=== PATIENT | female | born 1980 | race African-American/Black ===

== ENCOUNTER 2018-08-25 19:34 | Emergency (ER) | payer MEDICAID ==
[~2018-08-25] VITALS: Ht 170.2 cm; Wt 109.0 kg
[2018-08-25 19:56] VITALS: BP 160/101
== END 2018-08-25 23:10 | disposition left against medical advice (07) ==
LOC: ER 19:34
DX: Z53.21 Procedure and treatment not carried out due to patient leaving prior to being seen by health care provider (principal)

== ENCOUNTER 2019-02-13 19:46 | Inpatient (IN) | payer BC, MEDICAID ==
[~2019-02-13] VITALS: Ht 170.2 cm; Wt 104.3 kg
[2019-02-13] MEDS ORDERED: MORPHINE SULFATE 4 MG/ML CPJ (NOT FOR IM USE) IV STA (23:26)
[2019-02-13] MEDS ORDERED: SODIUM CHLORIDE 0.9% 1,000 ML IV ONE (23:26)
[2019-02-13] MEDS ORDERED: ONDANSETRON HCL 4MG/2ML INJ IV STA (23:26)
[2019-02-14 00:04] LABS: BASOPHILS % 0.7 % (0.0-2.0); EOSINOPHILS % 2.8 % (0.0-5.0); HEMATOCRIT. 30.5 % (36.0-48.0); HEMOGLOBIN. 9.8 g/dL (12.0-16.0); LYMPHOCYTES % 45.6 % (20.0-50.0); MEAN CORPUSCULAR HEMOGLOBIN 23.1 pg (28.0-32.0); MEAN CORPUSCULAR VOLUME 71.8 fL (81.0-99.0); MEAN PLATELET VOLUME 7.7 fl (7.4-10.4); MONOCYTES % 5.7 % (2.0-8.0); NEUTROPHILS % 45.2 % (40.0-76.0); PLATELET 363 x1000/uL (130-400); RED BLOOD CELL COUNT 4.24 mill/uL (4.2-5.4); RED CELL DISTRIBUTION WIDTH 17.8 % (11.6-14.6)
[2019-02-14 00:05] LABS: CHLORIDE 108 mEq/L (98-107)
[2019-02-14 00:06] LABS: PROTHROMBIN TIME 10.5 sec (9.6-11.0)
[2019-02-14 00:24] LABS: CLARITY URINE CLEAR (CLEAR); COLOR URINE YELLOW (YELLOW); KETONES URINE NEGATIVE (NEGATIVE); LEUKOCYTE ESTERASE URINE NEGATIVE (NEGATIVE); NITRITE URINE NEGATIVE (NEGATIVE); OCCULT BLOOD URINE NEGATIVE (NEGATIVE); PH URINE 6.5 (4.5-8.0); PROTEIN URINE NEGATIVE (NEGATIVE); UROBILINOGEN URINE 0.2 E.U./dL (0.2-1.0)
[2019-02-14] MEDS ORDERED: MORPHINE SULFATE 4 MG/ML CPJ (NOT FOR IM USE) IV ONE (01:30)
[2019-02-14] MEDS ORDERED: HYDROMORPHONE HCL/PF 2MG/ML CPJ IV ONE (04:00)
[2019-02-14] MEDS ORDERED: ONDANSETRON HCL 4MG/2ML INJ IV ONE (05:45)
[2019-02-14] MEDS ORDERED: MAGNESIUM/ALUMINUM HYDROXIDE/SIMETHICONE 30ML UDC PO PRN (07:15)
[2019-02-14] MEDS ORDERED: CLONIDINE 0.1MG TABLET PO PRN (07:15)
[2019-02-14] MEDS ORDERED: ACETAMINOPHEN 325MG TABLET PO PRN (07:15)
[2019-02-14] MEDS ORDERED: HYDROCODONE/ACETAMINOPHEN 5/325MG TABLET PO PRN (07:15)
[2019-02-14] MEDS: MORPHINE SULFATE 2 MG/ML CPJ (NOT FOR IM USE) IV PRN ×3 (08:52→21:55)
[2019-02-14] MEDS ORDERED: LEVO200T8 MT (10:08)
[2019-02-14] MEDS: AMLODIPINE 10MG TABLET PO SCH (10:30)
[2019-02-14 10:32] VITALS: BP 124/70
[2019-02-14] MEDS ORDERED: HYDROMORPHONE HCL/PF 2MG/ML CPJ IV SCH (10:45)
[2019-02-14 12:00] VITALS: BP 122/62
[2019-02-14] MEDS: DIPHENHYDRAMINE 50MG/ML VIAL IV PRN ×2 (13:29→21:54)
[2019-02-14] MEDS: DEXT 5%/0.45% NACL KCL 10MEQ/L 1,000 ML IV SCH (13:29)
[2019-02-14] MEDS: LEVOTHYROXINE SODIUM 200MCG TABLET PO SCH (14:37)
[2019-02-14 16:00] VITALS: BP 121/60
[2019-02-14] MEDS: ONDANSETRON HCL 4MG/2ML INJ IV PRN (17:49)
[2019-02-14 20:00] VITALS: BP 132/72
[2019-02-14] MEDS: OMEPRAZOLE 20MG CAPSULE EXTENDED RELEASE PO SCH (23:32)
[2019-02-15] VITALS: BP 136/66
[2019-02-15] MEDS: DEXT 5%/0.45% NACL KCL 10MEQ/L 1,000 ML IV SCH (02:38)
[2019-02-15] MEDS: ONDANSETRON HCL 4MG/2ML INJ IV PRN (02:38)
[2019-02-15] MEDS: MORPHINE SULFATE 2 MG/ML CPJ (NOT FOR IM USE) IV PRN ×3 (02:40→23:22)
[2019-02-15 04:00] VITALS: BP 122/70
[2019-02-15] MEDS: LEVOTHYROXINE SODIUM 200MCG TABLET PO SCH (07:10)
[2019-02-15] MEDS: OMEPRAZOLE 20MG CAPSULE EXTENDED RELEASE PO SCH ×2 (07:11→20:48)
[2019-02-15 07:27] LABS: BASOPHILS % 0.3 % (0.0-2.0); EOSINOPHILS % 3.3 % (0.0-5.0); HEMATOCRIT. 27.9 % (36.0-48.0); HEMOGLOBIN. 8.9 g/dL (12.0-16.0); LYMPHOCYTES % 25.1 % (20.0-50.0); MEAN CORPUSCULAR HEMOGLOBIN 23.2 pg (28.0-32.0); MEAN CORPUSCULAR VOLUME 72.4 fL (81.0-99.0); MEAN PLATELET VOLUME 8.2 fl (7.4-10.4); MONOCYTES % 6.1 % (2.0-8.0); NEUTROPHILS % 65.2 % (40.0-76.0); PLATELET 307 x1000/uL (130-400); RED BLOOD CELL COUNT 3.85 mill/uL (4.2-5.4); RED CELL DISTRIBUTION WIDTH 17.6 % (11.6-14.6)
[2019-02-15 08:00] VITALS: BP 132/63
[2019-02-15] MEDS: AMLODIPINE 10MG TABLET PO SCH ×2 (08:53→09:00)
[2019-02-15 09:26] LABS: CHLORIDE 109 mEq/L (98-107)
[2019-02-15] MEDS: DIPHENHYDRAMINE 50MG/ML VIAL IV PRN ×2 (11:22→11:37)
[2019-02-15 12:00] VITALS: BP 116/81
[2019-02-15] MEDS: SUCRALFATE 1 G/10 ML UDC PO SCH ×3 (12:41→20:48)
[2019-02-15] MEDS ORDERED: SIMETHICONE 80MG TABLET CHEW PO PRN (13:00)
[2019-02-15] MEDS: METOCLOPRAMIDE HCL 10MG/2ML VIAL IV SCH ×3 (14:07→23:21)
[2019-02-15 16:00] VITALS: BP 120/73
[2019-02-15 20:00] VITALS: BP 118/78
[2019-02-15] MEDS: DOCUSATE SODIUM 100MG CAPSULE PO SCH (20:47)
[2019-02-16] VITALS: BP 110/86
[2019-02-16 04:00] VITALS: BP 117/56
[2019-02-16] MEDS: METOCLOPRAMIDE HCL 10MG/2ML VIAL IV SCH ×2 (06:12→12:18)
[2019-02-16] MEDS: LEVOTHYROXINE SODIUM 200MCG TABLET PO SCH (06:22)
[2019-02-16] MEDS: SUCRALFATE 1 G/10 ML UDC PO SCH ×2 (06:22→12:18)
[2019-02-16] MEDS: OMEPRAZOLE 20MG CAPSULE EXTENDED RELEASE PO SCH (06:22)
[2019-02-16 07:16] LABS: BASOPHILS % 0.5 % (0.0-2.0); HEMATOCRIT. 28.8 % (36.0-48.0); HEMOGLOBIN. 9.2 g/dL (12.0-16.0); LYMPHOCYTES % 34.6 % (20.0-50.0); MEAN CORPUSCULAR HEMOGLOBIN 23.1 pg (28.0-32.0); MEAN CORPUSCULAR VOLUME 72.4 fL (81.0-99.0); MEAN PLATELET VOLUME 8.3 fl (7.4-10.4); MONOCYTES % 9.1 % (2.0-8.0); NEUTROPHILS % 52.8 % (40.0-76.0); PLATELET 305 x1000/uL (130-400); RED BLOOD CELL COUNT 3.98 mill/uL (4.2-5.4); RED CELL DISTRIBUTION WIDTH 17.7 % (11.6-14.6)
[2019-02-16 07:21] LABS: CHLORIDE 109 mEq/L (98-107)
[2019-02-16 07:27] LABS: TOTAL IRON BINDING CAPACITY 360 ug/dL (250-450)
[2019-02-16] MEDS ORDERED: DEXT 5%/0.45% NACL KCL 10MEQ/L 1,000 ML IV SCH (08:00)
[2019-02-16 08:37] LABS: FOLIC ACID (FOLATE) SERUM 8.4 ng/mL (>5.38)
[2019-02-16] MEDS: DOCUSATE SODIUM 100MG CAPSULE PO SCH (08:47)
[2019-02-16] MEDS: AMLODIPINE 10MG TABLET PO SCH (08:53)
[2019-02-16] MEDS ORDERED: SUCR1TAB30 MT (12:47)
[2019-02-16] MEDS ORDERED: SIME80TA15 MT (12:47)
[2019-02-16] MEDS ORDERED: LANS15CA12 MT (12:47)
[2019-02-16] MEDS ORDERED: POTASSIUM CHLORIDE 20MEQ TABLET SR PO NR (13:00)
[2019-02-16 13:22] VITALS: BP 121/61
== END 2019-02-16 15:57 | disposition home or self-care (01) | DRG 392 ==
LOC: ER 19:46 → 6EST 02-14 04:57 → EDBEDREQTM 02-14 05:00 → EDBEDREQ 02-14 05:00 → ENRESERV 02-14 07:22
PROVIDERS: ADMIT Hospitalist; ATTEND Hospitalist
DX: K29.70 Gastritis, unspecified, without bleeding (principal); E44.1 Mild protein-calorie malnutrition; E87.6 Hypokalemia; E89.0 Postprocedural hypothyroidism; K57.90 Diverticulosis of intestine, part unspecified, without perforation or abscess without bleeding; D50.9 Iron deficiency anemia, unspecified; Z90.49 Acquired absence of other specified parts of digestive tract; Z68.36 Body mass index [BMI] 36.0-36.9, adult
CPT/HCPCS: 36415; 74021; 74176; 80048; 81003; 82607; 82728; 82746; 83540; 83550; 93970; 96374; 99285; C1893; J1170; J1200; J2270; J2405; J2765; J7030

== ENCOUNTER 2019-09-25 13:33 | Emergency (ER) | payer BC, MEDICAID ==
[~2019-09-25] VITALS: Ht 170.2 cm; Wt 109.0 kg
[~2019-09-25 13:33] MED LIST: LANS15CA12 MT; LEVO200T8 MT; SIME80TA15 MT; SUCR1TAB30 MT
[2019-09-25] MEDS ORDERED: SODIUM CHLORIDE 0.9% 1,000 ML IV ONE (17:30)
[2019-09-25] MEDS ORDERED: KETOROLAC 30MG/ML VIAL IV ONE (17:30)
[2019-09-25] MEDS ORDERED: DIPHENHYDRAMINE 50MG/ML VIAL IV ONE (17:30)
[2019-09-25 19:30] VITALS: BP 137/76
== END 2019-09-25 19:57 | disposition home or self-care (01) ==
LOC: ER 13:33
DX: G43.909 Migraine, unspecified, not intractable, without status migrainosus (principal); R03.0 Elevated blood-pressure reading, without diagnosis of hypertension; E03.9 Hypothyroidism, unspecified
CPT/HCPCS: 96374; 96375; 99284; J1200; J1885; J7030

== ENCOUNTER 2019-09-26 14:14 | Emergency (ER) | payer MEDICAID ==
[~2019-09-26] VITALS: Ht 170.2 cm; Wt 108.0 kg
[2019-09-26] MEDS ORDERED: DEXAMETHASONE 10 MG/ML VIAL IM ONE (16:45)
[2019-09-26] MEDS ORDERED: HYDROCODONE/ACETAMINOPHEN 5/325MG TABLET PO ONE (16:45)
[2019-09-26] MEDS ORDERED: KETOROLAC 30MG/ML VIAL IM ONE (16:45)
[2019-09-26] MEDS ORDERED: ONDANSETRON HCL 4MG TABLET PO ONE (16:45)
[2019-09-26 17:15] LABS: CLARITY URINE CLEAR (CLEAR); COLOR URINE YELLOW (YELLOW); KETONES URINE TRACE (NEGATIVE); LEUKOCYTE ESTERASE URINE NEGATIVE (NEGATIVE); NITRITE URINE NEGATIVE (NEGATIVE); OCCULT BLOOD URINE NEGATIVE (NEGATIVE); PROTEIN URINE NEGATIVE (NEGATIVE); SPECIFIC GRAVITY URINE 1.026 (1.005-1.030); UROBILINOGEN URINE 0.2 E.U./dL (0.2-1.0)
[2019-09-26 17:26] LABS: *AMPHETAMINES SCREEN URINE NEGATIVE (NEGATIVE); *BENZODIAZEPINES SCREEN URINE NEGATIVE (NEGATIVE); *COCAINE SCREEN URINE NEGATIVE (NEGATIVE); METHADONE URINE SCREEN NEGATIVE (NEGATIVE); OPIATES URINE SCREEN NEGATIVE (NEGATIVE); PHENCYCLIDINE URINE SCREEN NEGATIVE (NEGATIVE)
[2019-09-26 17:27] LABS: CANNABINOID URINE SCREEN NEGATIVE (NEGATIVE)
[2019-09-26 17:39] LABS: *BARBITURATES SCREEN URINE PRESUMTIVE POSITIVE (NEGATIVE)
[2019-09-26 18:27] VITALS: BP 146/89
== END 2019-09-26 18:31 | disposition home or self-care (01) ==
LOC: ER 14:14
DX: G43.909 Migraine, unspecified, not intractable, without status migrainosus (principal); G44.89 Other headache syndrome; R11.2 Nausea with vomiting, unspecified; E03.9 Hypothyroidism, unspecified; Z90.49 Acquired absence of other specified parts of digestive tract; Z90.89 Acquired absence of other organs; Z98.890 Other specified postprocedural states; Z79.899 Other long term (current) drug therapy
CPT/HCPCS: 80305; 81003; 81025; 96372; 99284; J1100; J1885; Q0162